=== PATIENT | male | born 1960 | race Caucasian/White ===

== ENCOUNTER → 2022-02-05 | Outpatient (CLI) | payer SELFPAY ==
[2022-02-05 15:54] LABS: ALB/GLOB Ratio 1.3 RATIO (0.9-2.4); AST(SGOT) 27 U/L (15-37); Alanine Aminotransfer ALT/SGPT 38 U/L (16-61); Albumin, Serum 3.8 g/dL (3.2-5.0); Alkaline Phosphatase 94 U/L (45-117); Anion Gap 7 (5-15); BUN 18 mg/dL (7-18); BUN/Creat Ratio 14.3 RATIO (10-20); Calcium,Total 8.8 mg/dL (8.5-10.1); Chloride 102 mmol/L (98-107); Cholesterol 137 mg/dL (200); Creatinine, Serum 1.26 mg/dL (0.70-1.30); EST Glomerular Filtration Rate 62 mL/min (>60); Est Glom Filt Rate - Afr Amer 74 mL/min (>60); Glucose 80 mg/dL (74-106); High Density Lipoprotein 48 mg/dL; PSA,Total - Annual Screen 3.16 ng/mL (0.00-4.00); Potassium 4.1 mmol/L (3.5-5.1); Protein, Total 6.8 g/dL (6.4-8.2); Sodium Level 138 mmol/L (136-145); Triglycerides 49 mg/dL; Very Low Density Lipoprotein 10 mg/dL (5-40)
== END | disposition home or self-care (01) ==
DX: E78.5 Hyperlipidemia, unspecified (principal); R35.1 Nocturia
CPT/HCPCS: 36415; 80053; 80061; 84153; G0103

== ENCOUNTER → 2022-08-13 | Outpatient (CLI) | payer SELFPAY ==
[2022-08-13 18:47] LABS: PSA,Total- Diagnostic 3.89 ng/mL (0.0-4.0)
== END | disposition home or self-care (01) ==
DX: R35.1 Nocturia (principal)
CPT/HCPCS: 36415; 84153

== ENCOUNTER → 2023-02-07 | Outpatient (CLI) | payer SELFPAY ==
[2023-02-07 12:46] LABS: Cholesterol 148 mg/dL (200); High Density Lipoprotein 41 mg/dL; PSA,Total - Annual Screen 3.32 ng/mL (0.00-4.00); Triglycerides 63 mg/dL; Very Low Density Lipoprotein 13 mg/dL (5-40)
== END | disposition home or self-care (01) ==
PROVIDERS: Referring Provider Urology; Visit Provider Urology
DX: R35.1 Nocturia (principal); I25.2 Old myocardial infarction; E78.5 Hyperlipidemia, unspecified
CPT/HCPCS: 36415; 80061; 84153; G0103

== ENCOUNTER → 2024-02-07 | Outpatient (CLI) | payer SELFPAY ==
[2024-02-07 12:33] LABS: PSA,Total - Annual Screen 2.56 ng/mL (0.00-4.00)
== END | disposition home or self-care (01) ==
LOC: MTLAB 11:01
PROVIDERS: Referring Provider Urology; Visit Provider Urology
DX: R35.1 Nocturia (principal)
CPT/HCPCS: 36415; 84153; G0103